=== PATIENT | male | born 1995 | race Two or more races ===

== ENCOUNTER → 2021-08-01 | Emergency (ER) | payer SELFPAY ==
[~2021-08-01] VITALS: Ht 167.6 cm; Wt 65.8 kg
--- NOTE | 2021-08-01 20:44 | NUR ---
BIBRA 59 FROM BUS C/O POSS OD, GIVEN 5mg versed IM. 1 MG NARCAN IVP BOX CHIPPER, BS 112 . AWAKE BUT DISORIENTED. TOLERATING R/A WELL WITH NO SOB. CONNECTED PT TO POX AND MONITOR.
--- NOTE | 2021-08-01 20:45 | NUR ---
OFFERED PT URINAL; PT NOT ABLE TO URINATE AT THIS TIME. WILL F/U AND COLLECTED LATER
--- NOTE | 2021-08-01 22:22 | NUR ---
POC BS 91; NOTIFIED DR. SHERRIE PACHECO
--- NOTE | 2021-08-01 22:35 | NUR ---
APPLICATION SPECIALIST AT PT'S BEDSIDE
[2021-08-01 22:45] LABS: BASOPHILS # (AUTO) 0.1 K/uL (0.0-0.2); BASOPHILS % (AUTO) 0.6 % (0.0-2.0); EOSINOPHILS % (AUTO) 1.1 % (0.0-6.0); HEMATOCRIT 43 % (39-51); HEMOGLOBIN 13.8 g/dL (13.5-17.5); LYMPHOCYTES # (AUTO) 1.7 K/uL (0.8-4.8); LYMPHOCYTES % (AUTO) 14.9 % (20.0-44.0); MEAN CORPUSCULAR HGB CONC 32 g/dl (31.0-36.0); MEAN CORPUSCULAR VOLUME 85 fL (80-96); MONOCYTES # (AUTO) 0.7 K/uL (0.1-1.30); NEUTROPHILS % (AUTO) 77.4 % (43.0-81.0); PLATELET COUNT (AUTO) 338 K/uL (150-450); RED BLOOD CELL COUNT(AUTO) 5.01 MIL/uL (4.5-6.0); WHITE BLOOD COUNT (AUTO) 11.7 K/uL (4.3-11.0)
[2021-08-01 23:11] LABS: BILIRUBIN,DIRECT 0.1 mg/dL (0.0-0.2); BILIRUBIN,TOTAL 0.2 mg/dL (0.2-1.0); CALCIUM, SERUM 8.4 mg/dL (8.5-10.1); CREATININE 0.9 mg/dL (0.6-1.3)
[2021-08-01 23:12] LABS: ALBUMIN 3.6 g/dL (3.4-5.0)
[2021-08-01 23:13] LABS: TOTAL PROTEIN, SERUM 6.2 g/dL (6.4-8.2)
--- NOTE | 2021-08-01 23:49 | NUR ---
URINE COLLECTED AND SENT TO LAB
[2021-08-02 00:04] LABS: BILIRUBIN,URINE NEGATIVE (NEGATIVE); COLOR,URINE YELLOW (YELLOW); LEUKOCYTE ESTERASE ,URINE NEGATIVE (NEGATIVE); NITRITE, URINE NEGATIVE (NEGATIVE); PROTEIN,URINE TRACE mg/dl (NEGATIVE); UGLUCOSE NEGATIVE (NEGATIVE); UROBILINOGEN,URINE 0.2 EU/dL (0.2)
--- NOTE | 2021-08-02 00:30 | NUR ---
Patient discharged to home in stable condition. Written and verbal after care instructions given. Patient verbalizes understanding of instruction. Pt. ambulatory with a steady gait. IV removed. Catheter intact and site benign. Pressure and 4x4 applied to site. No bleeding noted.
[2021-08-02 00:32] VITALS: BP 116/70
== END | disposition home or self-care (01) ==
LOC: ER 20:45
DX: R46.1 Bizarre personal appearance (principal); Z60.2 Problems related to living alone
CPT/HCPCS: 36415; 80048-TC; 80076-TC; 82962-TC; 85025-TC; G0480